=== PATIENT | male | born 1990 | race Two or more races ===

== ENCOUNTER 2016-04-21 15:57 | Inpatient (IN) | payer OTHER ==
[2016-04-21 17:09] VITALS: BMI 25.2
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
[2016-04-21] MEDS ORDERED: MAG HYDROX/AL HYDROX/SIMETH 30 ML UNIT-DOSE CUP PO PRN (18:21)
[2016-04-21] MEDS ORDERED: IBUPROFEN 400 MG TABLET (FP) PO PRN (18:21)
[2016-04-21] MEDS ORDERED: MAGNESIUM CITRATE 300 ML BOTTLE PO PRN (18:21)
[2016-04-21] MEDS ORDERED: NICOTINE POLACRILEX 2 MG GUM BC PRN (18:21)
[2016-04-21] MEDS ORDERED: guaiFENesin/D-METHORPHAN HB 10 ML UNIT-DOSE CUPS PO PRN (18:21)
[2016-04-21] MEDS ORDERED: MAGNESIUM HYDROX 2400MG/30ML ORAL SUSPENSION 30 ML CUP PO PRN (18:21)
[2016-04-21] MEDS ORDERED: MENTHOL/PHENOL 1 EACH UD MM PRN (18:21)
[2016-04-21] MEDS ORDERED: LOPERAMIDE HCL 2 MG CAPSULE PO PRN (18:21)
[2016-04-21] MEDS ORDERED: P-EPHED 60MG/TRIPROLIDI 2.5MG TABLET PO PRN (18:21)
[2016-04-21] MEDS ORDERED: ACETAMINOPHEN 325 MG TABLET (FP) PO PRN (18:21)
[2016-04-21] MEDS ORDERED: diphenhydrAMINE HCL 50 MG CAPSULE PO PRN (18:21)
[2016-04-21] MEDS: THIAMINE HCL 100 MG TABLET (FP) PO SCH (22:29)
[2016-04-21 23:03] LABS: URINE APPEARANCE CLEAR; URINE BILIRUBIN NEGATIVE (NEGATIVE); URINE BLOOD NEGATIVE (NEGATIVE); URINE COLOR LTYELLOW; URINE GLUCOSE (UA) NEGATIVE (NEGATIVE); URINE KETONE TRACE (NEGATIVE); URINE LEUK ESTERASE NEGATIVE (NEGATIVE); URINE NITRITE NEGATIVE (NEGATIVE); URINE PROTEIN NEGATIVE (NEGATIVE); URINE UROBILINOGEN NEGATIVE E.U./dl (0.2-1.0)
[2016-04-22] MEDS: PRENATAL VITAMINS W/ FOLIC ACID TABLET (FP) PO SCH (09:37)
[2016-04-22] MEDS: NICOTINE 14 MG/24 HOURS TOPICAL PATCH TD SCH (09:38)
[2016-04-22] MEDS: DIVALPROEX NA *ER* EXTEND REL 500 MG TABLET.SA (FP) PO SCH ×2 (09:39→21:21)
[2016-04-22] MEDS: risperiDONE 2 MG TABLET PO SCH ×2 (09:39→21:20)
--- NOTE | 2016-04-22 11:06 | EKG ---
Test Reason : Blood Pressure : / mmHG Vent. Rate : 068 BPM Atrial Rate : 068 BPM P-R Int : 144 ms QRS Dur : 106 ms QT Int : 400 ms P-R-T Axes : 052 057 051 degrees QTc Int : 425 ms NORMAL SINUS RHYTHM WITH SINUS ARRHYTHMIA NORMAL ECG NO PREVIOUS ECGS AVAILABLE Confirmed by ERIS BUTTS, KUMAR ([id number]) on 04/22/2016 11:06:28 AM Referred By: Liliana Barry Confirmed By:KUMAR SCHULTE MD
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
[2016-04-22 15:23] LABS: ALBUMIN 3.6 g/dl (3.4-5.0); ANION GAP 12 (8-16); CALCIUM 8.9 mg/dL (8.5-10.1); CO2 26 mmol/L (21-32); CREATININE 0.9 mg/dL (0.7-1.3); GLUCOSE,RANDOM 112 mg/dL (74-106); SGOT/AST 17 U/L (15-37); SGPT/ALT 17 U/L (12-78)
[2016-04-22 15:25] LABS: ALK PHOS 59 U/L (45-117); BILIRUBIN,TOTAL 0.3 mg/dL (0.2-1.0); TOT PROT 7.3 g/dl (6.4-8.2)
[2016-04-22 15:40] LABS: MCH 27.8 pg (25.7-33.7); MCHC 32.7 g/dl (32.0-35.9); MEAN PLT VOLUME 8.5 fl (7.5-11.1); PLATELET COUNT 229 K/MM3 (134-434); RDW 13.7 % (11.9-15.9); WHITE BLOOD COUNT 5.8 K/mm3 (4.0-10.0)
[2016-04-22] MEDS: THIAMINE HCL 100 MG TABLET (FP) PO SCH (21:20)
[2016-04-23] MEDS: DIVALPROEX NA *ER* EXTEND REL 500 MG TABLET.SA (FP) PO SCH ×2 (09:56→21:56)
[2016-04-23] MEDS: PRENATAL VITAMINS W/ FOLIC ACID TABLET (FP) PO SCH (09:56)
[2016-04-23] MEDS: NICOTINE 14 MG/24 HOURS TOPICAL PATCH TD SCH (09:58)
[2016-04-23] MEDS: risperiDONE 2 MG TABLET PO SCH ×2 (10:18→21:55)
[2016-04-23] MEDS: hydrOXYzine PAMOATE 50 MG CAPSULE (FP) PO PRN (14:17)
[2016-04-23] MEDS: THIAMINE HCL 100 MG TABLET (FP) PO SCH (21:55)
[2016-04-24] MEDS: DIVALPROEX NA *ER* EXTEND REL 500 MG TABLET.SA (FP) PO SCH ×2 (09:56→21:37)
[2016-04-24] MEDS: PRENATAL VITAMINS W/ FOLIC ACID TABLET (FP) PO SCH (09:56)
[2016-04-24] MEDS: risperiDONE 2 MG TABLET PO SCH ×2 (09:57→21:38)
[2016-04-24] MEDS: NICOTINE 14 MG/24 HOURS TOPICAL PATCH TD SCH (09:58)
[2016-04-24] MEDS: BACITRACIN 0.9 GM PACKET TP SCH ×2 (12:26→21:37)
[2016-04-24] MEDS: hydrOXYzine PAMOATE 50 MG CAPSULE (FP) PO PRN (14:33)
[2016-04-24] MEDS: THIAMINE HCL 100 MG TABLET (FP) PO SCH (21:37)
[2016-04-25] MEDS: DIVALPROEX NA *ER* EXTEND REL 500 MG TABLET.SA (FP) PO SCH ×2 (09:59→21:54)
[2016-04-25] MEDS: PRENATAL VITAMINS W/ FOLIC ACID TABLET (FP) PO SCH (09:59)
[2016-04-25] MEDS: BACITRACIN 0.9 GM PACKET TP SCH ×2 (09:59→21:54)
[2016-04-25] MEDS: risperiDONE 2 MG TABLET PO SCH ×2 (09:59→21:54)
[2016-04-25] MEDS: NICOTINE 14 MG/24 HOURS TOPICAL PATCH TD SCH (10:00)
[2016-04-25] MEDS: hydrOXYzine PAMOATE 50 MG CAPSULE (FP) PO PRN (14:16)
[2016-04-25] MEDS: THIAMINE HCL 100 MG TABLET (FP) PO SCH (21:54)
[2016-04-26] MEDS: NICOTINE 14 MG/24 HOURS TOPICAL PATCH TD SCH (10:40)
[2016-04-26] MEDS: hydrOXYzine PAMOATE 50 MG CAPSULE (FP) PO PRN ×2 (10:40→14:18)
[2016-04-26] MEDS: DIVALPROEX NA *ER* EXTEND REL 500 MG TABLET.SA (FP) PO SCH ×2 (10:40→22:02)
[2016-04-26] MEDS: BACITRACIN 0.9 GM PACKET TP SCH ×2 (10:40→22:02)
[2016-04-26] MEDS: PRENATAL VITAMINS W/ FOLIC ACID TABLET (FP) PO SCH (10:40)
[2016-04-26] MEDS: risperiDONE 2 MG TABLET PO SCH ×2 (10:40→22:02)
[2016-04-26] MEDS: THIAMINE HCL 100 MG TABLET (FP) PO SCH (22:02)
[2016-04-27] MEDS: DIVALPROEX NA *ER* EXTEND REL 500 MG TABLET.SA (FP) PO SCH ×2 (10:32→22:03)
[2016-04-27] MEDS: BACITRACIN 0.9 GM PACKET TP SCH ×2 (10:32→22:03)
[2016-04-27] MEDS: risperiDONE 2 MG TABLET PO SCH ×2 (10:32→22:03)
[2016-04-27] MEDS: NICOTINE 14 MG/24 HOURS TOPICAL PATCH TD SCH (10:33)
[2016-04-27] MEDS: PRENATAL VITAMINS W/ FOLIC ACID TABLET (FP) PO SCH (10:33)
[2016-04-27] MEDS: hydrOXYzine PAMOATE 50 MG CAPSULE (FP) PO PRN (10:34)
[2016-04-27] MEDS: THIAMINE HCL 100 MG TABLET (FP) PO SCH (22:03)
[2016-04-28] MEDS: DIVALPROEX NA *ER* EXTEND REL 500 MG TABLET.SA (FP) PO SCH ×2 (09:32→21:22)
[2016-04-28] MEDS: risperiDONE 2 MG TABLET PO SCH ×2 (09:32→21:22)
[2016-04-28] MEDS: PRENATAL VITAMINS W/ FOLIC ACID TABLET (FP) PO SCH (09:32)
[2016-04-28] MEDS: NICOTINE 14 MG/24 HOURS TOPICAL PATCH TD SCH (09:32)
[2016-04-28] MEDS: BACITRACIN 0.9 GM PACKET TP SCH ×2 (09:33→21:22)
[2016-04-28] MEDS: hydrOXYzine PAMOATE 50 MG CAPSULE (FP) PO PRN ×2 (09:34→21:23)
[2016-04-28] MEDS: THIAMINE HCL 100 MG TABLET (FP) PO SCH (21:22)
[2016-04-29] MEDS: NICOTINE 14 MG/24 HOURS TOPICAL PATCH TD SCH (09:25)
[2016-04-29] MEDS: BACITRACIN 0.9 GM PACKET TP SCH ×2 (09:25→21:24)
[2016-04-29] MEDS: DIVALPROEX NA *ER* EXTEND REL 500 MG TABLET.SA (FP) PO SCH ×2 (09:25→21:24)
[2016-04-29] MEDS: PRENATAL VITAMINS W/ FOLIC ACID TABLET (FP) PO SCH (09:25)
[2016-04-29] MEDS: risperiDONE 2 MG TABLET PO SCH ×2 (09:25→21:24)
[2016-04-29] MEDS: hydrOXYzine PAMOATE 50 MG CAPSULE (FP) PO PRN ×2 (09:27→21:25)
[2016-04-29] MEDS: THIAMINE HCL 100 MG TABLET (FP) PO SCH (21:24)
[2016-04-30] MEDS: DIVALPROEX NA *ER* EXTEND REL 500 MG TABLET.SA (FP) PO SCH ×2 (10:05→21:41)
[2016-04-30] MEDS: BACITRACIN 0.9 GM PACKET TP SCH ×2 (10:06→21:41)
[2016-04-30] MEDS: risperiDONE 2 MG TABLET PO SCH ×2 (10:06→21:41)
[2016-04-30] MEDS: NICOTINE 14 MG/24 HOURS TOPICAL PATCH TD SCH (10:06)
[2016-04-30] MEDS: PRENATAL VITAMINS W/ FOLIC ACID TABLET (FP) PO SCH (10:07)
[2016-04-30] MEDS: hydrOXYzine PAMOATE 50 MG CAPSULE (FP) PO PRN ×2 (10:07→21:41)
[2016-04-30] MEDS: THIAMINE HCL 100 MG TABLET (FP) PO SCH (21:41)
[2016-05-01] MEDS: hydrOXYzine PAMOATE 50 MG CAPSULE (FP) PO PRN ×2 (06:43→21:16)
[2016-05-01] MEDS: DIVALPROEX NA *ER* EXTEND REL 500 MG TABLET.SA (FP) PO SCH ×2 (10:01→21:15)
[2016-05-01] MEDS: PRENATAL VITAMINS W/ FOLIC ACID TABLET (FP) PO SCH (10:01)
[2016-05-01] MEDS: NICOTINE 14 MG/24 HOURS TOPICAL PATCH TD SCH (10:01)
[2016-05-01] MEDS: BACITRACIN 0.9 GM PACKET TP SCH ×2 (10:01→21:16)
[2016-05-01] MEDS: risperiDONE 2 MG TABLET PO SCH ×2 (10:01→21:15)
[2016-05-01] MEDS: THIAMINE HCL 100 MG TABLET (FP) PO SCH (21:15)
[2016-05-02] MEDS: risperiDONE 2 MG TABLET PO SCH ×2 (10:24→21:58)
[2016-05-02] MEDS: PRENATAL VITAMINS W/ FOLIC ACID TABLET (FP) PO SCH (10:24)
[2016-05-02] MEDS: DIVALPROEX NA *ER* EXTEND REL 500 MG TABLET.SA (FP) PO SCH ×2 (10:24→21:58)
[2016-05-02] MEDS: BACITRACIN 0.9 GM PACKET TP SCH ×2 (10:24→21:58)
[2016-05-02] MEDS: NICOTINE 14 MG/24 HOURS TOPICAL PATCH TD SCH (10:25)
[2016-05-02] MEDS: hydrOXYzine PAMOATE 50 MG CAPSULE (FP) PO PRN ×2 (10:27→22:00)
[2016-05-02] MEDS: THIAMINE HCL 100 MG TABLET (FP) PO SCH (21:58)
[2016-05-03] MEDS: BACITRACIN 0.9 GM PACKET TP SCH ×2 (10:49→21:21)
[2016-05-03] MEDS: risperiDONE 2 MG TABLET PO SCH ×2 (10:49→21:21)
[2016-05-03] MEDS: NICOTINE 14 MG/24 HOURS TOPICAL PATCH TD SCH (10:49)
[2016-05-03] MEDS: DIVALPROEX NA *ER* EXTEND REL 500 MG TABLET.SA (FP) PO SCH ×2 (10:49→21:21)
[2016-05-03] MEDS: PRENATAL VITAMINS W/ FOLIC ACID TABLET (FP) PO SCH (10:49)
[2016-05-03] MEDS: hydrOXYzine PAMOATE 50 MG CAPSULE (FP) PO PRN ×2 (10:50→21:22)
[2016-05-03] MEDS: THIAMINE HCL 100 MG TABLET (FP) PO SCH (21:21)
[2016-05-04] MEDS: risperiDONE 2 MG TABLET PO SCH ×2 (10:36→21:38)
[2016-05-04] MEDS: DIVALPROEX NA *ER* EXTEND REL 500 MG TABLET.SA (FP) PO SCH ×2 (10:36→21:38)
[2016-05-04] MEDS: PRENATAL VITAMINS W/ FOLIC ACID TABLET (FP) PO SCH (10:36)
[2016-05-04] MEDS: BACITRACIN 0.9 GM PACKET TP SCH ×2 (10:37→21:39)
[2016-05-04] MEDS: NICOTINE 14 MG/24 HOURS TOPICAL PATCH TD SCH (10:37)
[2016-05-04] MEDS: hydrOXYzine PAMOATE 50 MG CAPSULE (FP) PO PRN ×2 (10:37→21:39)
[2016-05-04] MEDS: THIAMINE HCL 100 MG TABLET (FP) PO SCH (21:38)
[2016-05-05 07:06] VITALS: BP 140/73; PULSE 83; TEMP 98.3
[2016-05-05] MEDS: PRENATAL VITAMINS W/ FOLIC ACID TABLET (FP) PO SCH (09:38)
[2016-05-05] MEDS: DIVALPROEX NA *ER* EXTEND REL 500 MG TABLET.SA (FP) PO SCH (09:38)
[2016-05-05] MEDS: risperiDONE 2 MG TABLET PO SCH (09:39)
[2016-05-05] MEDS: NICOTINE 14 MG/24 HOURS TOPICAL PATCH TD SCH (09:39)
[2016-05-05] MEDS: BACITRACIN 0.9 GM PACKET TP SCH (09:39)
[2016-05-05] MEDS: hydrOXYzine PAMOATE 50 MG CAPSULE (FP) PO PRN (09:43)
--- NOTE | 2016-05-05 15:00 | PN ---
Psychiatric Progress Note Vital Signs: Vital Signs Period Temp Pulse Resp BP Sys/Hahn Pulse Ox Last 24 Hr 98.3 F 83 18-18 140/73 Date of Session: 05/05/16 Chief Complaint:: dicharge visit HPI: Patient has addressed alcohol abuse, canabis dependence comorbid Schizophrenia, paranoid. ROS: WNL Current Medications: Active Medications Generic Name Dose Route Start Last Admin Trade Name Freq PRN Reason Stop Dose Admin Acetaminophen 650 mg 04/21/16 18:21 Tylenol - PO Q4H PRN PAIN Al Hydroxide/Mg Hydroxide 30 ml 04/21/16 18:21 Mylanta Oral Suspension - PO Q6H PRN DYSPEPSIA Bacitracin 0.9 gm 04/24/16 11:30 05/05/16 09:39 Bacitracin - TP Not Given BID [facility] Diphenhydramine HCl 50 mg 04/21/16 18:21 Benadryl - PO HSMR1 PRN INSOMNIA Divalproex Sodium 500 mg 04/22/16 10:00 05/05/16 09:38 Depakote *Er* - PO 500 mg BID [facility] Administration Eucalyptus/Menthol/Phenol/Sorbitol 1 each 04/21/16 18:21 Cepastat Lozenge - MM Q4H PRN SORE THROAT Guaifenesin 10 ml 04/21/16 18:21 Robitussin Dm - PO Q6H PRN COUGH Hydroxyzine Pamoate 50 mg 04/21/16 18:21 05/05/16 09:43 Vistaril - PO 50 mg Q4H PRN Administration AGITATION Ibuprofen 400 mg 04/21/16 18:21 Motrin - PO Q6H PRN SEVERE PAIN Loperamide HCl 4 mg 04/21/16 18:21 Imodium - PO Q6H PRN DIARRHEA Magnesium Citrate 300 ml 04/21/16 18:21 Citroma - PO Q48H PRN CONSTIPATION Magnesium Hydroxide 30 ml 04/21/16 18:21 Milk Of Magnesia - PO DAILY PRN CONSTIPATION Nicotine 14 mg 04/22/16 10:00 05/05/16 09:39 Nicoderm Patch - TD Not Given DAILY MCKINLEY Nicotine Polacrilex 2 mg 04/21/16 18:21 Nicorette Gum - BC Q2H PRN NICOTINE REPLACEMENT RX Multivit/Folic Acid/Iron 1 tab 04/22/16 10:00 05/05/16 09:38 Vitamins ([facility]) - PO 1 tab DAILY [facility] Administration Pseudoephedrine/Triprolidine 1 combo 04/21/16 18:21 Actifed - PO TID PRN NASAL CONGESTION Risperidone 2 mg 04/22/16 10:00 05/05/16 09:39 Risperdal - PO 2 mg BID [facility] Administration Thiamine HCl 100 mg 04/21/16 22:00 05/04/16 21:38 Vitamin B1 - PO 100 mg HS [facility] Administration Current Side Effect: No Lab tests ordered: No Lab tests reviewed: Yes Provider note:: Patient has completed today his treatment and met his goals, patient will follow up at his [facility]. Medications Depakote and Risperdal well tolerated, scripts provided, patient is stable for discharge. MSE completed. Total face to face time:: 15 Mental Status Exam - Mental Status Exam Alert and Oriented to: Time, Place, Person Cognitive Function: Fair Patient Appearance: Well Groomed Mood: Hopeful Patient Behavior: Appropriate, Cooperative Speech Pattern: Clear, Appropriate Voice Loudness: Normal Thought Process: Intact, Goal Oriented Thought Disorder: Not Present Hallucinations: Denies Suicidal Ideation: Denies Homicidal Ideation: Denies Insight/Judgement: Fair Sleep: Fair Appetite: Good Muscle strength/Tone: Normal Gait/Station: Normal Psychiatric Treatment Plan - Problem List (1) Cannabis dependence, uncomplicated Current Visit: Yes (2) Alcohol abuse Current Visit: Yes (3) Schizophrenia, paranoid Current Visit: Yes
== END 2016-05-05 14:50 | disposition home or self-care (01) | DRG 772 ==
LOC: YASAS 15:57 → Y5N 18:31
PROVIDERS: ADMIT Psychiatry & Neurology Psychiatry; ATTEND Psychiatry & Neurology Psychiatry
PROC: HZ42ZZZ Group Counseling for Substance Abuse Treatment, Cognitive-Behavioral (ICD-10-PCS; principal; 2016-05-05)
DX: F12.20 Cannabis dependence, uncomplicated (principal); F10.10 Alcohol abuse, uncomplicated; F17.210 Nicotine dependence, cigarettes, uncomplicated; F20.0 Paranoid schizophrenia; F31.81 Bipolar II disorder
CPT/HCPCS: 36415; 80053; 80164; 81003; 85027; 86593; 93005; 93010